=== PATIENT | female | born 1955 | race Caucasian/White ===

== ENCOUNTER 2016-12-12 18:36 | Emergency (ER) | payer OTHER ==
[~2016-12-12] VITALS: Ht 160 cm; Wt 50.0 kg
[~2016-12-12 18:36] MED LIST: ALBU1AER INH; AMLO5TAB22 PO; BENZ100 PO; LEVO175T2 PO
[2016-12-12 18:38] VITALS: BP 160/81; PULSE 69; RESP 12; TEMP 98.6; O2SAT 96
--- NOTE | 2016-12-12 20:35 | PD ---
HPI Chief Complaint: Injury Time Seen by Provider: 20:28 Travel History International Travel<30 days: No Contact w/Intl Traveler<30days: No Traveled to known affect area: No History of Present Illness HPI This is a 61-year-old female presents for evaluation of left wrist pain. The patient reports that yesterday she was standing next to her sink when her left leg sciatica acted up and her leg "gave way" which she says happens frequently. She landed on her outstretched left hand. She now has left wrist pain. Pain is a throbbing pain that is constant and worse with movement. Symptoms persisted throughout the day which prompted evaluation. She denies any other injuries and she has no other complaints. PFSH Past Medical History Cardiovascular Problems: Yes (HTN) Diminished Hearing: No Hypertension: Yes Immunizations Current: No Thyroid Disease: Yes (HYPO) Tubal Ligation: Yes Past Surgical History Tonsillectomy: Yes Social History Alcohol Use: Yes (socially) Tobacco Use: Yes (1 pack per week) Substance Use: No Allergies-Medications (Allergen,Severity, Reaction): Coded Allergies: Sulfa (Verified Allergy, Unknown, 06/15/16) Reported Meds & Prescriptions Reported Meds & Active Scripts Active Zofran (Ondansetron HCl) 4 Mg Tab 4 Mg PO Q6HR PRN Lortab (Hydrocodone-Acetaminophen) 5-325 Mg Tab 1 Tab PO Q6H PRN Proair Hfa (Albuterol Sulfate) 8.5 Gm Aero 2 Puff INH Q4 PRN * SHAKE WELL BEFORE USE * Tessalon Perles (Benzonatate) 100 Mg Cap 100 Mg PO TID PRN Reported Levothyroxine 175 mcg (Levothyroxine Sodium) 175 Mcg Tab 175 Mcg PO DAILY Amlodipine5 5 Mg Tab 1 Tab PO DAILY Review of Systems Musculoskeletal: Positive: Limited ROM, Pain Skin: Positive Other (soft tissue swelling) Physical Exam Narrative GENERAL: Well-developed well-nourished female in no acute distress SKIN: Warm and dry. CARDIOVASCULAR: Regular rate and rhythm. No murmur appreciated. RESPIRATORY: No accessory muscle use. Clear to auscultation. Breath sounds equal bilaterally. Extremities: Soft tissue swelling about the left wrist with associated tenderness to palpation. The patient has limited range of motion of the left wrist. Capillary refill less than 2 seconds all digits left hand. 2+ radial pulse. Data Data Last Documented VS Vital Signs Date Time Temp Pulse Resp B/P Pulse Ox O2 Delivery O2 Flow Rate FiO2 12/12/16 18:38 98.6 69 12 160/81 96 Room Air Orders Wrist, Complete ([id number]) (12/12/16 ) Ice/Cold Pack (12/12/16 20:31) Splint Or Brace Apply/Monitor (12/12/16 21:10) Support Splint (12/12/16 21:10) MDM Medical Decision Making Medical Screen Exam Complete: Yes Emergency Medical Condition: Yes Medical Record Reviewed: Yes Interpretation(s) Left wrist x-ray reveals distal radial and ulnar styloid fractures. Differential Diagnosis Left wrist fracture, dislocation, sprain Narrative Course Left wrist x-ray will be obtained. Ice pack provided. X-ray imaging confirms distal radial and ulnar styloid fractures. I discussed the x-ray results with MATTHIEU Lombardo box person for Dr. Boyd, who reviewed the films and would like the patient to follow-up in the orthopedic office early next week. The patient will be placed in a sugar tong splint. Recommendations have been discussed with the patient verbalizes understanding. She is currently without insurance and therefore a mandatory outpatient referral has been placed. She is stable for discharge. Diagnosis Primary Impression: Left wrist fracture Qualified Code: S62.102A - Left wrist fracture, closed, initial encounter Referrals: Felix Boyd MD Additional Instructions: Follow-up with orthopedist Dr. Boyd in the next week, call his office to make an appointment. Please be advised that the ed case manager will be contacting sometime in the next week to help facilitate appointment. Pain medication as needed. Do not drive or drink alcohol when taking Lortab. Do not remove the splint. Return for any emergent medical conditions. Med/Other Pt SpecificInfo: Prescription(s) given, Orthopedic Instructions Scripts Ondansetron (Zofran)4 Mg Tab4 Mg PO Q6HR PRN (NAUSEA OR VOMITING) #20 TAB Ref 0 Prov:Sheldon Villegas MD 12/12/16 Hydrocodone-Acetaminophen (Lortab)5-325 Mg Tab1 Tab PO Q6H PRN (PAIN) #20 TAB Ref 0 Prov:Sheldon Villegas MD 12/12/16 Disposition: 01 DISCHARGE HOME Condition: Stable Navjot Camp Dec 12, 2016 20:35
--- NOTE | 2016-12-12 20:56 | RADRPT ---
EXAM DATE/TIME: 12/12/2016 20:41 [facility] COMPARISON: No previous studies available for comparison. INDICATIONS : Left wrist pain after fall. MEDICAL HISTORY : Prior fracture to left wrist. SURGICAL HISTORY : None. ENCOUNTER: Initial ACUITY: 2 days PAIN SCORE: 8/10 LOCATION: Left wrist. FINDINGS: Three view examination of the left wrist demonstrates mildly displaced distal radius fracture. Ulnar styloid fracture. Soft tissue swelling. Bony mineralization is normal. CONCLUSION: Distal radial and ulnar styloid fractures. Kunal Guzman MD on December 12, 2016 at 20:54 Board Certified Radiologist. This report was verified electronically.
[2016-12-12] MEDS ORDERED: HYDR-3533 PO (21:21)
[2016-12-12] MEDS ORDERED: ZOFR4TAB PO (21:21)
[2017-02-06] MEDS ORDERED: LEVO75TA3 PO (14:36)
[2017-02-06] MEDS ORDERED: IBUP200T2 PO (14:36)
[2017-02-06] MEDS ORDERED: FLUT1INH INH (14:36)
[2017-02-06] MEDS ORDERED: BACL10TA PO (14:36)
[2017-02-06] MEDS ORDERED: TRAZ100T4 PO (14:36)
[2017-02-06] MEDS ORDERED: ACET500C PO (14:36)
[2017-02-06] MEDS ORDERED: CENTTAB PO (14:36)
[2017-02-06] MEDS ORDERED: AMOX500C PO (14:36)
[2017-02-06] MEDS ORDERED: GABA300C5 PO (14:36)
[2017-02-06] MEDS ORDERED: AMLO5TAB2 PO (14:36)
[2017-02-26] MEDS ORDERED: HYDR-3516 PO (11:28)
[2017-02-26] MEDS ORDERED: METH125I2 IM (12:00)
[2017-03-21] MEDS ORDERED: CALTTAB PO (14:35)
[2017-03-21] MEDS ORDERED: LEVO75TA3 PO (14:54)
[2017-03-21] MEDS ORDERED: AMLO5TAB2 PO (14:54)
[2017-05-02] MEDS ORDERED: MEDR4PAK PO (13:55)
[2017-05-03] MEDS ORDERED: NAPR500 PO (10:53)
== END 2016-12-12 22:11 | disposition home or self-care (01) ==
LOC: NEPB 18:36
DX: S52.502A Unspecified fracture of the lower end of left radius, initial encounter for closed fracture (principal); S52.612A Displaced fracture of left ulna styloid process, initial encounter for closed fracture; M54.32 Sciatica, left side; I10 Essential (primary) hypertension; E07.9 Disorder of thyroid, unspecified; Z72.0 Tobacco use; W18.39XA Other fall on same level, initial encounter
CPT/HCPCS: 29125; 73110

== ENCOUNTER → 2017-03-07 | Outpatient (CLI) | payer OTHER ==
[~2017-03-07] MED LIST changes: +ACET500C PO; -ALBU1AER INH; +AMLO5TAB2 PO; -AMLO5TAB22 PO; +BACL10TA PO; -BENZ100 PO; +CALTTAB PO; +CENTTAB PO; +FLUT1INH INH; +GABA300C5 PO; +HYDR-3516 PO; +IBUP200T2 PO; -LEVO175T2 PO; +LEVO75TA3 PO; +MEDR4PAK PO; +NAPR500 PO; +TRAZ100T4 PO
[2017-03-07 11:32] LABS: AUTOMATED NEUTROPHIL # 3.7 TH/MM3 (1.8-7.7); BASOPHIL % 0.5 % (0.0-2.0); EOSINOPHIL # 0.1 TH/MM3 (0-0.4); EOSINOPHIL % 1.2 % (0.0-4.0); HEMATOCRIT 41.4 % (35.0-46.0); HEMO FLAGS DIFF FINAL; LYMPHOCYTE # 2.7 TH/MM3 (1.0-4.8); MEAN CORPUSCULAR HEMOGLOBIN 29.5 PG (27.0-34.0); MEAN CORPUSCULAR HGB CONC 34.3 % (32.0-36.0); MONO % 12.6 % (0.0-8.0); NEUT % 49.7 % (16.0-70.0); PLATELET COUNT 159 TH/MM3 (150-450); RED BLOOD COUNT 4.81 MIL/MM3 (4.00-5.30); RED CELL DISTRIBUTION WIDTH 12.9 % (11.6-17.2); WHITE BLOOD COUNT 7.5 TH/MM3 (4.0-11.0)
== END ==
LOC: CLAB 11:11
PROVIDERS: ATTEND Nurse Practitioner Family
DX: B19.20 Unspecified viral hepatitis C without hepatic coma (principal); E03.9 Hypothyroidism, unspecified
CPT/HCPCS: 36415; 84443; 85025

== ENCOUNTER 2017-03-21 15:21 | Emergency (ER) | payer OTHER ==
[~2017-03-21] VITALS: Ht 160 cm; Wt 58.0 kg
[~2017-03-21 15:21] MED LIST changes: -MEDR4PAK PO; -NAPR500 PO
[2017-03-21 15:22] VITALS: BP 150/74; PULSE 87; RESP 15; TEMP 97.8; O2SAT 98
--- NOTE | 2017-03-21 15:32 | PD ---
Physical Exam Time Seen by Provider: 15:28 Narrative 61yo F c/o left wrist pain that radiates up her left arm. Pain has been since she had a wrist fx in December and cast removed in January. Pain causes LIZ too. Denies N/V/F. Takes gabapentin. Patient stable. Patient seen in triage. Awaiting bed placement. Data Data Last Documented VS Vital Signs Date Time Temp Pulse Resp B/P Pulse Ox O2 Delivery O2 Flow Rate FiO2 03/21/17 15:22 97.8 87 15 150/74 98 MDM Supervised Visit with JIMMY: Kaylene Ulloa Mar 21, 2017 15:31
[2017-05-02] MEDS ORDERED: MEDR4PAK PO (13:55)
[2017-05-03] MEDS ORDERED: NAPR500 PO (10:53)
[2017-06-03] MEDS ORDERED: TRAZ100T6 PO (10:27)
[2017-06-03] MEDS ORDERED: LEVO50TA4 PO (10:37)
== END 2017-03-21 15:59 | disposition left against medical advice (07) ==
LOC: NED 15:21
DX: M25.532 Pain in left wrist (principal); Z53.21 Procedure and treatment not carried out due to patient leaving prior to being seen by health care provider
CPT/HCPCS: 99281

== ENCOUNTER 2017-03-22 08:23 | Emergency (ER) | payer OTHER ==
[~2017-03-22] VITALS: Ht 160 cm; Wt 60.0 kg
[~2017-03-22 08:23] MED LIST changes: -FLUT1INH INH; -HYDR-3516 PO
[2017-03-22 08:25] VITALS: BP 146/75; PULSE 76; RESP 18; TEMP 98.2; O2SAT 98
--- NOTE | 2017-03-22 09:00 | PD ---
HPI . Left shoulder pain for months Chief Complaint: Musculoskeletal Complaint Time Seen by Provider: 09:00 Travel History International Travel<30 days: No Contact w/Intl Traveler<30days: No Traveled to known affect area: No History of Present Illness HPI 61-year-old female with multiple medical problems including OA, Hep C, HPV, HTN ,MVR, PAD, hypothyroidism, DDD, and lower back pain with sciatica here with complaints of left arm pain. Apparently patient was seen yesterday in the community clinic for this left arm pain and told there was not much that can be done. She was given a shot of Solu-Medrol, which temporarily relieved her pain. She decided to come to the emergency department for further evaluation as she has pain in her left arm and shoulder and would like further workup. She denies any recent injury. She reports difficulty moving her arm past the clavicle. She also has decreased wool carder strength, but had sustained a left wrist fracture in December. She was told by orthopedic physician that she would experience issues with this hand, but she wants know if there is something that can be done. She is right-hand dominant. PFSH Past Medical History Cardiovascular Problems: Yes (MITRAL VALVE REGURGITATION) Diminished Hearing: No Hypertension: Yes Immunizations Current: No Thyroid Disease: Yes (HYPO) Tubal Ligation: Yes Past Surgical History Tonsillectomy: Yes Social History Alcohol Use: Yes (socially) Tobacco Use: Yes (1 pack per week) Substance Use: No Allergies-Medications (Allergen,Severity, Reaction): Coded Allergies: Sulfa (Verified Allergy, Unknown, 03/22/17) Reported Meds & Prescriptions Reported Meds & Active Scripts Active Levothyroxine (Levothyroxine Sodium) 75 Mcg Tab 75 Mcg PO DAILY Amlodipine (Amlodipine Besylate) 5 Mg Tab 5 Mg PO DAILY Reported Caltrate 600+D (Calcium Carbonate-Cholecalciferol) 600-800 Mg-Unit Tab 1 Tab PO BID Trazodone (Trazodone HCl) 100 Mg Tab 50 Mg PO HS Acetaminophen 500 Mg Cap 500 Mg PO Q4-6H PRN Ibuprofen 200 Mg Tab 200 Mg PO Q6H PRN Centrum Silver (Multiple Vitamins W/ Minerals) 1 Tab 1 Tab PO DAILY Gabapentin 300 Mg Cap 600 Mg PO TID Baclofen 10 Mg Tab 10 Mg PO TID Review of Systems General / Constitutional: No: Fever Eyes: No: Visual changes HENT: No: Headaches Cardiovascular: No: Chest Pain or Discomfort Respiratory: No: Shortness of Breath Gastrointestinal: No: Abdominal Pain Genitourinary: No: Dysuria Musculoskeletal: Positive: Pain (left arm pain) Skin: No Rash Neurologic: No: Weakness Psychiatric: No: Depression Endocrine: No: Polydipsia Hematologic/Lymphatic: No: Easy Bruising Physical Exam Narrative GENERAL: AAO x 3, no acute distress, Well-nourished, well-developed patient. SKIN: Warm and dry. No visible rashes or bruising. HEAD: Normocephalic and atraumatic. EYES: No scleral icterus. No injection or drainage. ENT: No nasal drainage noted. Mucous membranes pink. Airway patent. NECK: Supple, trachea midline. No JVD. CARDIOVASCULAR: Regular rate and rhythm without murmurs, gallops, or rubs. RESPIRATORY: Breath sounds equal bilaterally. No accessory muscle use. No rhonchi or rales. GASTROINTESTINAL: Abdomen soft, non-tender, nondistended. EXTREMITIES: No cyanosis or edema. left shoulder: Limited ROM in the RUE/ shoulder joint: rotator cuff tests are positive, wool carder strength diminished in left hand. BACK: Nontender without obvious deformity. No CVA tenderness. PSYCH: AAO x 3, normal affect. Data Data Last Documented VS Vital Signs Date Time Temp Pulse Resp B/P Pulse Ox O2 Delivery O2 Flow Rate FiO2 03/22/17 08:25 98.2 76 18 146/75 98 MDM Medical Decision Making Medical Screen Exam Complete: Yes Emergency Medical Condition: No Medical Record Reviewed: Yes Differential Diagnosis Chronic shoulder pain, rotator cuff injury, cervical radiculopathy Narrative Course 61-year-old female with multiple medical problems including OA, Hep C, HPV, HTN ,MVR, PAD, hypothyroidism, DDD, and lower back pain with sciatica here with complaints of left arm pain. Apparently patient was seen yesterday in the community clinic for this left arm pain and told there was not much that can be done. She was given a shot of Solu-Medrol, which temporarily relieved her pain. She decided to come to the emergency department for further evaluation as she has pain in her left arm and shoulder and would like further workup. She denies any recent injury. She reports difficulty moving her arm past the clavicle. She also has decreased wool carder strength, but had sustained a left wrist fracture in December. She was told by orthopedic physician that she would experience issues with this hand, but she wants know if there is something that can be done. She is right-hand dominant. I advised the patient that these are all chronic issues and unfortunately there is not much that I could do an emergency department. I do not believe she has any acute bony abnormality. Imaging is not indicated. I've explained to her that ultimately she will need an MRI to check her rotator cuff muscles. She is aware that the [facility] is unable to provide these resources and this is something that she may have to pay for out of pocket. She is interested in cortisone shots to the shoulder, and this is something that is possible through the [facility]. I have discussed with Gloria Rodriguez, (the nurse practitioner at [facility]), she will make arrangements. A medical screening exam was performed: At the time of evaluation the presenting medical condition was determined not to be of an emergent nature. The patient was given the option of receiving additional care, but declined. Patient was given options for additional community resources from which to obtain care. The Patient Has Been advised to seek medical attention for their presenting complaint. The patient has been advised to return to the ER at any time if an emergent condition develops. Diagnosis Primary Impression: Encounter for medical screening examination Condition: Liana Mishra Mar 22, 2017 09:00
[2017-05-02] MEDS ORDERED: MEDR4PAK PO (13:55)
[2017-05-03] MEDS ORDERED: NAPR500 PO (10:53)
[2017-06-03] MEDS ORDERED: TRAZ100T6 PO (10:27)
[2017-06-03] MEDS ORDERED: LEVO50TA4 PO (10:37)
== END 2017-03-22 11:04 | disposition left against medical advice (07) ==
LOC: NEPK 08:23
DX: M79.602 Pain in left arm (principal)
CPT/HCPCS: 99281

== ENCOUNTER → 2017-05-29 | Outpatient (CLI) | payer OTHER ==
[~2017-05-29] MED LIST changes: +LEVO50TA4 PO; +MEDR4PAK PO; +NAPR500 PO; +TRAZ100T6 PO
== END ==
LOC: CLAB 11:18
PROVIDERS: ATTEND Nurse Practitioner Family
DX: E03.9 Hypothyroidism, unspecified (principal)
CPT/HCPCS: 36415; 84443

== ENCOUNTER → 2017-07-17 | Outpatient (CLI) | payer OTHER ==
[~2017-07-17] MED LIST changes: -ACET500C PO; -CALTTAB PO; +CARA1TAB6 PO; -CENTTAB PO; +DICL1GEL7 TOPICAL; -LEVO75TA3 PO; +MELO-1 PO; +OMEP20TA PO; -TRAZ100T4 PO
== END ==
LOC: CLAB 09:56
PROVIDERS: ATTEND Nurse Practitioner Family
DX: E03.9 Hypothyroidism, unspecified (principal)
CPT/HCPCS: 36415; 84443

== ENCOUNTER → 2017-07-30 | Outpatient (CLI) | payer OTHER ==
[~2017-07-30] MED LIST changes: -GABA300C5 PO; -IBUP200T2 PO; -MEDR4PAK PO; -MELO-1 PO; -TRAZ100T6 PO
--- NOTE | 2017-07-30 10:14 | RADRPT ---
EXAM DATE/TIME: 07/30/2017 09:26 [facility] COMPARISON: No previous studies available for comparison. INDICATIONS : Epigastric pain. MEDICAL HISTORY : Hypertension. Hypothyroidism. Peripheral vascular disease. Mitral valve regurgitation. Osteoar thritis. Hepatitis C. SURGICAL HISTORY : Tonsillectomy. Tubal ligation. Hysterectomy. Adenoidectomy. Colectomy. Fibrocystic removal, bilater al. Mastectomy. ENCOUNTER: Initial ACUITY: 4-6 days PAIN SCORE: 8/10 LOCATION: Abdomen. MEASUREMENTS: LIVER: 13.8 cm length COMMON DUCT: 6 mm RIGHT KIDNEY: 10.3 x 5.7 x 4.2 cm LEFT KIDNEY: 10.2 x 5.3 x 5.0 cm SPLEEN: 9.2 cm length AORTA: 1.9cm maximal FINDINGS: LIVER: Normal echotexture without focal lesion or ductal dilatation. COMMON DUCT: No intraluminal mass or stone visualized. GALLBLADDER: Contains no stones, demonstrates no wall thickening or pericholecystic fluid. PANCREAS: The visualized portions are within normal limits. RIGHT KIDNEY: No hydronephrosis, stone or mass. LEFT KIDNEY: No hydronephrosis, stone or mass. SPLEEN: No focal lesion. AORTA: Non aneurysmal. IVC: Within normal limits. CONCLUSION: Normal examination. Aleksandar Gomez MD on July 30, 2017 at 10:11 Board Certified Radiologist. This report was verified electronically.
== END ==
LOC: HRAD 09:02
PROVIDERS: ATTEND Nurse Practitioner Family
DX: R10.13 Epigastric pain (principal)
CPT/HCPCS: 76700

== ENCOUNTER → 2017-07-31 | Outpatient (CLI) | payer OTHER | LOC: CLAB 10:26 | PROVIDERS: ATTEND Nurse Practitioner Family | DX: R10.13 Epigastric pain (principal) | CPT/HCPCS: 82272; 87338 ==

== ENCOUNTER → 2017-08-22 | Outpatient (CLI) | payer OTHER ==
--- NOTE | 2017-08-22 10:04 | RADRPT ---
EXAM DATE/TIME: 08/22/2017 09:38 [facility] COMPARISON: No previous studies available for comparison. INDICATIONS : Left shoulder pain for approximately 9 months. MEDICAL HISTORY : Hypertension. Hypothyroidism. Peripheral vascular disease. Mitral valve regurgitation. Osteoarthritis . Hepatitis C. SURGICAL HISTORY : Tonsillectomy. Tubal ligation. Hysterectomy. Adenoidectomy. Colectomy. Fibrocystic removal, bilateral . Mastectomy. ENCOUNTER: Initial ACUITY: 7 - 11 months PAIN SCORE: 7/10 LOCATION: Left lateral shoulder. FINDINGS: Multiple view examination of the left shoulder demonstrates no evidence of fracture or dislocation. The glenohumeral and acromioclavicular joints are maintained. There is normal range of motion betwee n internal and external rotation. Bony mineralization is normal. CONCLUSION: Normal examination for a patient of this age. Alejandro Heredia MD on August 22, 2017 at 9:59 Board Certified Radiologist. This report was verified electronically.
== END ==
LOC: HRAD 09:17
PROVIDERS: ATTEND Family Medicine
DX: M25.512 Pain in left shoulder (principal)
CPT/HCPCS: 73030